=== PATIENT | male | born 1990 ===

== ENCOUNTER 2020-10-17 17:31 | Emergency (ER) | payer SELFPAY ==
[~2020-10-17] VITALS: Ht 188 cm; Wt 74.8 kg
[2020-10-17 17:31] VITALS: BP 136/95
== END 2020-10-17 19:56 | disposition left against medical advice (07) ==
LOC: ER 17:36
DX: R53.83 Other fatigue (principal); Z53.21 Procedure and treatment not carried out due to patient leaving prior to being seen by health care provider